=== PATIENT | male | born 1955 | race Caucasian/White ===

== ENCOUNTER 2018-03-10 00:50 | Observation (INO) ==
--- NOTE | 2018-03-10 02:11 | ED ---
HPI General Chief Complaint: Chest Pain Stated Complaint: chest pain Time Seen by Provider: 03/10/18 01:58 Source: patient Mode of arrival: ambulatory Limitations: no limitations History of Present Illness HPI narrative: Patient is a 62-year-old male with history of hypertension, hyperlipidemia, presents to the emergency room with complaints of chest pain. Patient reports that he has been having intermittent chest pains which have been going on for the past 2-3 weeks. Patient reports that chest pains have been more severe over the past 2-3 days. Patient reports that he has tightness in his left chest, reports that he feels short of breath like he cannot breathe with this chest pain. Patient denies any nausea or vomiting with this chest pain. Patient reports that his chest pain feels like indigestion. Patient reports that he did see Dr. Vazquez 10 years ago and had a negative stress test at that time. 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 Complete Quality Measures for STEMI Alert Patients Related Data Home Medications Medication Instructions Recorded Confirmed acyclovir 200 mg PO DAILY PRN 03/10/18 03/10/18 allopurinol 300 mg PO DAILY 03/10/18 03/10/18 azilsartan medoxomil [Edarbi] 40 mg PO DAILY 03/10/18 03/10/18 Allergies Allergy/AdvReac Type Severity Reaction Status Date / Time penicillin G Allergy Unknown Hives Verified 03/10/18 00:55 Review of Systems ROS: all other systems reviewed are negative [facility] Medical History Medical History GERD (gastroesophageal reflux disease) (Acute) Gout (Acute) HTN (hypertension) (Acute) Hypercholesteremia (Acute) Low back pain (Acute) Surgical History Surgical History History of foot surgery (Acute) History of tonsillectomy and adenoidectomy (Acute) Family History Family History Father CHF (congestive heart failure) Social History Social History Substance History: No History of Abuse Second Hand Smoke Exposure: No Smoking Status: Never smoker How Often Do You Have a Drink Containing Alcohol: 2 to 4 times a month Recent Travel in [facility] within the Last 8 Weeks: No Recent Out of Country Travel within the Last 8 Weeks: No Immunization History Tetanus Immunization: <5 Years Hx Influenza Vaccine This Season: Yes Exam Narrative Exam Narrative: GENERAL: mild distress SKIN: Focused skin assessment warm/dry. HEAD: Atraumatic. Normocephalic. EYES: Pupils equal and round. No scleral icterus. No injection or drainage. ENT: No nasal bleeding or discharge. Mucous membranes pink and moist. NECK: Trachea midline. No JVD. CARDIOVASCULAR: Regular rate and rhythm. No murmur appreciated. RESPIRATORY: No accessory muscle use. Clear to auscultation. Breath sounds equal bilaterally. GASTROINTESTINAL: Abdomen soft, non-tender, nondistended. Hepatic and splenic margins not palpable. MUSCULOSKELETAL: No obvious deformities. No clubbing. No cyanosis. No edema. NEUROLOGICAL: Awake and alert. No obvious cranial nerve deficits. Motor grossly within normal limits. Normal speech. PSYCHIATRIC: Appropriate mood and affect; insight and judgment normal. Course Initial Documented Vital Signs Temperature 98.3 F 03/10/18 00:52 Pulse Rate 74 03/10/18 00:52 Respiratory Rate 16 03/10/18 00:52 Blood Pressure 163/95 H 03/10/18 00:52 Pulse Oximetry 97 03/10/18 00:52 Last Documented Vital Signs Temperature 98.6 F 03/10/18 12:39 Pulse Rate 68 03/10/18 12:39 Respiratory Rate 20 03/10/18 12:39 Blood Pressure 133/80 03/10/18 12:39 Pulse Oximetry 98 03/10/18 12:39 Medical Decision Making MDM Narrative Medical decision making narrative: During the course of the patients emergency department visit, the patients history, examination, and differential diagnosis were reviewed with the patient. The patient was placed on a personnel monitor with oximetry and frequent blood pressure monitoring. The patient had an IV access obtained and blood work sent for analysis. The patient was initially provided ASA as well as 1 SL nitro which did seem to help resolve his chest pain labs reviewed, 1st set of CE was negative. Plan to admit to Chest pain unit for 23 hour observation. Patient aggreable to plan of care Medical Screen Exam Complete: Yes Emergency Medical Condition: Yes Differential Diagnosis Differential Diagnosis: ACS, arrhythmia, PE, Aortic Dissection, Anxiety reaction Medical Records Medical records reviewed: Yes I reviewed the patient's medical records. Lab Data Lab results reviewed: Yes I reviewed the patient's lab results. Result diagrams: 03/10/18 02:14 03/10/18 02:14 Lab Results 03/10/18 18 03/10/18 Range/Units 02:14 02:14 02:14 WBC 5.4 (4.0-11.0) th/mm3 RBC 4.45 L (4.50-5.90) mil/mm3 Hgb 14.6 (13.0-17.0) gm/dL Hct 41.7 (39.0-51.0) % MCV 93.7 (80.0-100.0) fL MCH 32.9 (27.0-34.0) pg MCHC 35.1 (32.0-36.0) % RDW 13.7 (11.6-17.2) % Plt Count 165 (150-450) th/mm3 MPV 9.0 (7.0-11.0) fL Neut % (Auto) 51.1 (16.0-70.0) % Lymph % (Auto) 33.4 (9.0-44.0) % [place] % (Auto) 10.7 H (0.0-8.0) % Eos % (Auto) 3.4 (0.0-4.0) % Baso % (Auto) 1.4 (0.0-2.0) % Neut # (Auto) 2.8 (1.8-7.7) th/mm3 Lymph # (Auto) 1.8 (1.0-4.8) th/mm3 [place] # (Auto) 0.6 (0.0-0.9) th/mm3 Eos # (Auto) 0.2 (0.0-0.4) th/mm3 Baso # (Auto) 0.1 (0.0-0.2) th/mm3 WBC Differential . Differential Comment Auto diff final PT 9.7 L (9.8-11.6) sec INR 1.0 Ratio APTT 24.9 (24.3-30.1) sec Sodium 142 (136-145) meq/L Potassium 4.0 (3.5-5.1) meq/L Chloride 106 (98-107) meq/L Carbon Dioxide 26.8 (21.0-32.0) meq/L Anion Gap 9 (5-15) meq/L BUN 18 (7-18) mg/dL Creatinine 1.06 (0.60-1.30) mg/dL Estimated GFR 70 L (>89) mL/min Random Glucose 105 (74-106) mg/dL Calcium 8.3 L (8.5-10.1) mg/dL Total Bilirubin 0.4 (0.2-1.0) mg/dL AST 20 (15-37) U/L ALT 35 (12-78) U/L Alkaline Phosphatase 67 (45-117) U/L Total Creatine Kinase 228 (39-308) U/L CK-MB (CK-2) 5.0 H (0.5-3.6) ng/mL Troponin I Less than 0.02 L (0.02-0.05) ng/mL B-Natriuretic Peptide (0-100) pg/mL Total Protein 7.1 (6.4-8.2) g/dL Albumin 3.8 (3.4-5.0) g/dL 03/10/18 03/10/18 03/10/18 Range/Units 02:14 04:42 08:10 WBC (4.0-11.0) th/mm3 RBC (4.50-5.90) mil/mm3 Hgb (13.0-17.0) gm/dL Hct (39.0-51.0) % MCV (80.0-100.0) fL MCH (27.0-34.0) pg MCHC (32.0-36.0) % RDW (11.6-17.2) % Plt Count (150-450) th/mm3 MPV (7.0-11.0) fL Neut % (Auto) (16.0-70.0) % Lymph % (Auto) (9.0-44.0) % [place] % (Auto) (0.0-8.0) % Eos % (Auto) (0.0-4.0) % Baso % (Auto) (0.0-2.0) % Neut # (Auto) (1.8-7.7) th/mm3 Lymph # (Auto) (1.0-4.8) th/mm3 [place] # (Auto) (0.0-0.9) th/mm3 Eos # (Auto) (0.0-0.4) th/mm3 Baso # (Auto) (0.0-0.2) th/mm3 WBC Differential Differential Comment PT (9.8-11.6) sec INR Ratio APTT (24.3-30.1) sec Sodium (136-145) meq/L Potassium (3.5-5.1) meq/L Chloride (98-107) meq/L Carbon Dioxide (21.0-32.0) meq/L Anion Gap (5-15) meq/L BUN (7-18) mg/dL Creatinine (0.60-1.30) mg/dL Estimated GFR (>89) mL/min Random Glucose (74-106) mg/dL Calcium (8.5-10.1) mg/dL Total Bilirubin (0.2-1.0) mg/dL AST (15-37) U/L ALT (12-78) U/L Alkaline Phosphatase (45-117) U/L Total Creatine Kinase 196 180 (39-308) U/L CK-MB (CK-2) 4.8 H 4.5 H (0.5-3.6) ng/mL Troponin I Less than 0.02 L Less than 0.02 L (0.02-0.05) ng/mL B-Natriuretic Peptide 17 (0-100) pg/mL Total Protein (6.4-8.2) g/dL Albumin (3.4-5.0) g/dL Imaging Data Attestation: I personally reviewed and interpreted this imaging study as follows : Radiologist's impression: Chest X-Ray 03/10/18 02:07 CONCLUSION: Negative examination. Chest CTA 03/10/18 02:11 CONCLUSION: 1. No pulmonary emboli. 2. Suspected right subclavian venous stenosis. Myocardial Perfusion Scan Nuc Med 03/10/18 09:38 CONCLUSION: 1. Unremarkable study. ECG Data EKG Prior to Arrival: No Attestation: I personally reviewed and interpreted this ECG as follows: Interpretation: EKG at 0101: NSR at 72bpm, qt/qtc: 384/408, 1st degree av block Discharge Plan Discharge Disposition Patient Disposition: 01 Discharge Home Discharge Condition Condition: Good Discharge Order Discharge Orders: Discharge Order (Routine); Ordered 03/10/18 Ordered By: Carol Bishop Discharge Details Anticipated Discharge Date: 03/10/18 Physicians Team ED Provider: Edith Najera Primary Care Provider: Melvin Barajas Attending Provider: Maciel Chappell ED Status: Left Department Discharge Information Discharge Date/Time: 03/10/18 17:13
[2018-03-10 02:22] LABS: Baso # (Auto) 0.1 th/mm3 (0.0-0.2); Baso % (Auto) 1.4 % (0.0-2.0); Eos # (Auto) 0.2 th/mm3 (0.0-0.4); Eos % (Auto) 3.4 % (0.0-4.0); Hematocrit 41.7 % (39.0-51.0); Hemoglobin 14.6 gm/dL (13.0-17.0); Lymph # (Auto) 1.8 th/mm3 (1.0-4.8); Lymph % (Auto) 33.4 % (9.0-44.0); Mean Corpuscular HGB Conc 35.1 % (32.0-36.0); Mean Corpuscular Hemoglobin 32.9 pg (27.0-34.0); Mean Corpuscular Volume 93.7 fL (80.0-100.0); Mono # (Auto) 0.6 th/mm3 (0.0-0.9); Mono % (Auto) 10.7 % (0.0-8.0); Neut # (Auto) 2.8 th/mm3 (1.8-7.7); Neut % (Auto) 51.1 % (16.0-70.0); Platelet Count 165 th/mm3 (150-450); Red Blood Count 4.45 mil/mm3 (4.50-5.90); Red Cell Distribution Width 13.7 % (11.6-17.2); White Blood Count 5.4 th/mm3 (4.0-11.0)
[2018-03-10 02:34] LABS: Activated Partial Thrombo Time 24.9 sec (24.3-30.1); Prothrombin Time 9.7 sec (9.8-11.6)
--- NOTE | 2018-03-10 02:41 | XR ---
EXAM DATE: 03/10/2018 2:24 AM EDT AGE/SEX: 62 years / Male INDICATIONS: Chest pain and shortness of breath for a few days. CLINICAL DATA: This is the patient's initial encounter. Patient reports that signs and symptoms have been present for 3 days and indicates a pain score of 0/10. MEDICAL/SURGICAL HISTORY: None. None. COMPARISON: No prior exams available for comparison. FINDINGS: 2 frontal views of the chest demonstrates the lungs to be symmetrically aerated without evidence of m ass, infiltrate or effusion. The cardiomediastinal contours are unremarkable. Osseous structures ar e intact. CONCLUSION: Negative examination. Electronically signed by: Jesus Manuel Ac MD 03/10/2018 2:40 AM EDT
[2018-03-10 02:42] LABS: Alkaline Phosphatase 67 U/L (45-117); Creatine Kinase 228 U/L (39-308); Total Protein 7.1 g/dL (6.4-8.2)
[2018-03-10 02:44] LABS: Alanine Aminotransferase 35 U/L (12-78); Albumin 3.8 g/dL (3.4-5.0); Anion Gap 9 meq/L (5-15); Aspartate Aminotransferase 20 U/L (15-37); Blood Urea Nitrogen 18 mg/dL (7-18); Calcium 8.3 mg/dL (8.5-10.1); Carbon Dioxide 26.8 meq/L (21.0-32.0); Chloride 106 meq/L (98-107); Glomerular Filtration Rate 70 mL/min (>89); Glucose,Random 105 mg/dL (74-106); Sodium 142 meq/L (136-145)
--- NOTE | 2018-03-10 03:34 | CT ---
EXAM DATE: 03/10/2018 3:16 AM EDT AGE/SEX: 62 years / Male INDICATIONS: Chest pain. CLINICAL DATA: This is the patient's initial encounter. Patient reports that signs and symptoms have been present for 1 day and indicates a pain score of 5/10. MEDICAL/SURGICAL HISTORY: Hypertension. None. RADIATION DOSE: 11.58 CTDI (mGy) COMPARISON: [facility], CT CHEST W AND W/O CONTRAST, 03/05/2017. . TECHNIQUE: Volumetric scanning was performed using a multi-row detector CT scanner during bolus infu maria isabel of 100 ml Omnipaque 350 (iohexol) nonionic water-soluble contrast as a single exam dose. The da ta was post processed with a variety of visualization algorithms including full volume maximum intens ity projection and sliding thin slab reformation. Using automated exposure control and adjustment of the mA and/or kV according to patient size, radiation dose was kept as low as reasonably achievable t o obtain optimal diagnostic quality images. DICOM format image data is available electronically for review and comparison. FINDINGS: Pulmonary Arteries: No filling defects are seen in the pulmonary arteries out to the subsegmental ve ssels. The left and right pulmonary arteries are normal in diameter. Lung: No infiltrates seen. Effusion: None. Mediastinum: Suspected stenosis of the right subclavian vein. Collateral veins are seen involving th e mediastinum and shoulder. Heart is normal in size. No pericardial effusion. No evidence of mediasti nal or hilar adenopathy. Other: The axilla is unremarkable. CONCLUSION: 1. No pulmonary emboli. 2. Suspected right subclavian venous stenosis. Electronically signed by: Jesus Manuel Ac MD 03/10/2018 3:32 AM EDT
[2018-03-10 05:26] LABS: Creatine Kinase 196 U/L (39-308)
[2018-03-10 05:38] LABS: Creatine Kinase MB 4.8 ng/mL (0.5-3.6)
[2018-03-10 08:22] VITALS: RESP 20
[2018-03-10 09:12] LABS: Creatine Kinase 180 U/L (39-308)
[2018-03-10 09:24] LABS: Creatine Kinase MB 4.5 ng/mL (0.5-3.6)
[2018-03-10] MEDS ORDERED: Ibuprofen 400 MG Tablet PO ONE (09:59)
[2018-03-10] MEDS ORDERED: LORazepam 1 MG Tablet PO ONE (10:15)
--- NOTE | 2018-03-10 11:09 | P.HPCA ---
History of Present Illness Service: chest pain center Primary Care Physician: Melvin Barajas MD Chief Complaint: Chest Pain History of Present Illness: Patient is a 62 y.o. male who presented to the ER earlier this morning for c/o Left anterior upper chest pain described as a tightness. Onset ~ 20 days ago with increased frequency. Nonexertional, accompanied by dyspnea and the " feeling of needing to take deeper breaths". No N/V. Last evening for the first time he has associated diaphoresis prompting him to the ER as opposed to contacting his PCP for referral to cardiology as planned. Radiation to mid scapular area. Duration uncertain, but believes several minutes. AT times when he eats and develops the pain after, he will feel a full sensation like gas". Often relieved with 400 mg of Ibuprofen and a muscle relaxer he has for PRN use for LBP. Did return from [facility] to [place], [place] yesterday but did not have increased episodes in the higher elevations there. Feels very anxious/stressed when he gets the episodes to the degree he feels like he will go to sleep at night and not wake up. He denies any PND, Orthopnea, leg edema or palpitations. Denies history of Coronary Artery Disease. Did have similar episode of chest pain approximately 10 years ago with a consult to Dr. Vazquez. States he had a ETT that was abnormal resulting in a Cardiac Catheterization that demonstrated normal arteries. He was put on 1/2 tablet of a generic SSRI ( unsure which) for "stress" and he stopped it ~ 6 months ago. Unsure if that relates to return of his chest pain. He has not seen Dr. Vazquez in ~8 years. He is active and generally other than the above and some chronic intermittent LBP (L4-L5) has been well. - Diagnosis (1) Chest pain of unknown etiology Review of Systems All other systems reviewed negative except as stated in HPI [facility] - History History Provided By: Patient - Medical History Medical History: Medical History (Last Updated 03/10/18 @ 10:28 by JESSICA Samuels) GERD (gastroesophageal reflux disease) Gout HTN (hypertension) Hypercholesteremia Low back pain - Surgical History Surgical History: Surgical History (Last Reviewed 03/10/18 @ 02:55 by Edith Najera) History of foot surgery History of tonsillectomy and adenoidectomy - Family History Family History: Family History (Last Updated 03/10/18 @ 10:30 by JESSICA Samuels) Father CHF (congestive heart failure) - Tobacco History Second Hand Smoke Exposure: No Tobacco Use In Past 30 Days: No Smoking Status: Never smoker - Alcohol History How Often Do You Have a Drink Containing Alcohol: 2 to 4 times a month - Travel History Recent Travel in the [place] Within the Last 8 Weeks: No Recent Travel Out of the Country Within the Last 8 Weeks: No - Immunization History Tetanus Immunization: <5 Years Hx Influenza Vaccine This Season: Yes Medications and Allergies Active Medications: Active Medications Ibuprofen (Motrin) 400 mg PO ONCE ONE Stop: 03/10/18 10:00 Sodium Chloride (Ns Flush) 2 ml IV.FLUSH UNSCH PRN PRN Reason: FLUSH AFTER USING IV ACCESS Allergies Allergy/AdvReac Type Severity Reaction Status Date / Time penicillin G Allergy Unknown Hives Verified 03/10/18 00:55 Home Medications Medication Instructions Recorded Confirmed Type acyclovir 200 mg PO DAILY PRN 03/10/18 03/10/18 History allopurinol 300 mg PO DAILY 03/10/18 03/10/18 History azilsartan medoxomil [Edarbi] 40 mg PO DAILY 03/10/18 03/10/18 History Exam Vital signs: Vital Signs 03/10/18 00:52 03/10/18 01:53 03/10/18 02:22 Temperature 98.3 F Pulse Rate 74 66 Respiratory Rate 16 20 Blood Pressure 163/95 H 135/77 Pulse Oximetry 97 97 95 03/10/18 02:48 03/10/18 04:55 03/10/18 08:20 Temperature 98.2 F Pulse Rate 64 67 70 Respiratory Rate 18 18 20 Blood Pressure 124/58 L 151/87 H 122/74 Pulse Oximetry 96 97 95 Intake & Output 03/09/18 03/10/18 03/10/18 18:59 06:59 18:59 Weight 117.934 kg Narrative: GENERAL: Very pleasant 62 y.o. male asleep on rounds. Arouses easily and in no acute distress. SKIN: Warm and dry. HEAD: Atraumatic. Normocephalic. EYES: Pupils equal and round. No scleral icterus. No injection or drainage. ENT: No nasal bleeding or discharge. Mucous membranes pink and moist. NECK: Trachea midline. No JVD. No Carotid Bruits CARDIOVASCULAR: S1 and S2 in regular rate and rhythm. No S3, S4. No rubs, gallops, or murmurs. RESPIRATORY: No accessory muscle use. Clear to auscultation. Breath sounds equal bilaterally. GASTROINTESTINAL: Abdomen soft, non-tender, nondistended. Hepatic and splenic margins not palpable. MUSCULOSKELETAL: Extremities without clubbing, cyanosis, or edema. No obvious deformities. No leg edema. DP and PT pulses 2+ bilaterally. Mild tenderness on palpation left anterolateral chest wall and slight in mid thoracic/scapular area. No skin rashes along these areas NEUROLOGICAL: Awake and alert. No obvious cranial nerve deficits. Motor grossly intact, moves all extremities well. Normal speech. PSYCHIATRIC: Appropriate mood and affect; insight and judgment normal. Results 03/10/18 02:14 03/10/18 02:14 Cardiac Enzymes 03/10/18 03/10/18 03/10/18 Range/Units 02:14 02:14 04:42 AST 20 (15-37) U/L CK-MB (CK-2) 5.0 H 4.8 H (0.5-3.6) ng/mL Troponin I Less than 0.02 L Less than 0.02 L (0.02-0.05) ng/mL B-Natriuretic Peptide 17 (0-100) pg/mL 03/10/18 Range/Units 08:10 AST (15-37) U/L CK-MB (CK-2) 4.5 H (0.5-3.6) ng/mL Troponin I Less than 0.02 L (0.02-0.05) ng/mL B-Natriuretic Peptide (0-100) pg/mL Coagulation 18 03/10/18 Range/Units 02:14 02:14 PT 9.7 L (9.8-11.6) sec APTT 24.9 (24.3-30.1) sec B-Natriuretic Peptide 17 (0-100) pg/mL CBC 03/10/18 Range/Units 02:14 WBC 5.4 (4.0-11.0) th/mm3 RBC 4.45 L (4.50-5.90) mil/mm3 Hgb 14.6 (13.0-17.0) gm/dL Hct 41.7 (39.0-51.0) % Plt Count 165 (150-450) th/mm3 Neut # (Auto) 2.8 (1.8-7.7) th/mm3 Lymph # (Auto) 1.8 (1.0-4.8) th/mm3 [place] # (Auto) 0.6 (0.0-0.9) th/mm3 Eos # (Auto) 0.2 (0.0-0.4) th/mm3 Baso # (Auto) 0.1 (0.0-0.2) th/mm3 Comprehensive Metabolic Panel 03/10/18 Range/Units 02:14 Sodium 142 (136-145) meq/L Potassium 4.0 (3.5-5.1) meq/L Chloride 106 (98-107) meq/L Carbon Dioxide 26.8 (21.0-32.0) meq/L BUN 18 (7-18) mg/dL Creatinine 1.06 (0.60-1.30) mg/dL Calcium 8.3 L (8.5-10.1) mg/dL AST 20 (15-37) U/L ALT 35 (12-78) U/L Alkaline Phosphatase 67 (45-117) U/L Total Protein 7.1 (6.4-8.2) g/dL Albumin 3.8 (3.4-5.0) g/dL Intake and Output 03/09/18 03/10/18 03/10/18 22:59 06:59 14:59 Other: Weight 117.934 kg Impressions Chest X-Ray 03/10/18 02:07 CONCLUSION: Negative examination. Chest CTA 03/10/18 02:11 CONCLUSION: 1. No pulmonary emboli. 2. Suspected right subclavian venous stenosis. - Imaging and Cardiology EKG results: other (SR, low QRS voltage precordial leads, 1st degree AV block) Caprini VTE Risk Assessment Caprini Risk Assessment Model: Point Value = 1 Point Value = 2 Point Value = 3 Point Value = 5 Age 41-60 Minor surgery BMI > 25 kg/m2 Swollen legs Varicose veins or History of unexplained or recurrent spontaneous Oral contraceptives or hormone replacement Sepsis (< 1 month) Serious lung disease, including pneumonia (< 1 month) Abnormal pulmonary function Acute myocardial infarction Congestive heart failure (< 1 month) History of inflammatory bowel disease Medical patient at bed rest Age 61-74 Arthroscopic surgery Major open surgery (> 45 min) Laparoscopic surgery (> 45 min) Malignancy Confined to bed (> 72 hours) Immobilizing plaster cast Central venous access Age >= 75 History of VTE Family history of VTE Factor V Leiden Prothrombin [id number] Lupus anticoagulant Anticardiolipin antibodies Elevated serum homocysteine Heparin-induced thrombocytopenia Other congenital or acquired thrombophilia Stroke (< 1 month) Elective arthroplasty Hip, pelvis, or leg fracture Acute spinal cord injury (< 1 month) Prophylaxis Regimen: Total Risk Factor Score Risk Level Prophylaxis Regimen 0-1 Low Early ambulation 2 Moderate Order ONE of the following: *Sequential Compression Device (SCD) *Heparin 5000 units SQ BID 3-4 Higher Order ONE of the following medications: *Heparin 5000 units SQ TID *Enoxaparin/Lovenox 40 mg SQ daily (WT < 150 kg, CrCl > 30 mL/min) *Enoxaparin/Lovenox 30 mg SQ daily (WT < 150 kg, CrCl > 10-29 mL/min) *Enoxaparin/Lovenox 30 mg SQ BID (WT < 150 kg, CrCl > 30 mL/min) AND/OR *Sequential Compression Device (SCD) 5 or more Highest Order ONE of the following medications: *Heparin 5000 units SQ TID (Preferred with Epidurals) *Enoxaparin/Lovenox 40 mg SQ daily (WT < 150 kg, CrCl > 30 mL/min) *Enoxaparin/Lovenox 30 mg SQ daily (WT < 150 kg, CrCl > 10-29 mL/min) *Enoxaparin/Lovenox 30 mg SQ BID (WT < 150 kg, CrCl > 30 mL/min) AND *Sequential Compression Device (SCD) Assessment and Plan - Assessment (1) Chest pain of unknown etiology Code(s): R07.89 - Other chest pain Status: Acute - Plan 1. Chest pain: patient has been r/o for ACS with 3 negative sets of cardiac enzymes and ekgs: Remaining labs unremarkable. CXR negative. CTA chest negative for PE. Suspected Right Subclavian venous stenosis. Plan discussed with Dr. Chappell who is seeing the patient this morning. Given he has had a false positive ETT in the past leading to Cardiac Cath which was normal ~ 10 years ago , will proceed with ETT SPECT for further evaluation. 2. HTN: resume hypertensive medication. Code Status: Full Code Discussed Condition With: Dr. Maciel Chappell
[2018-03-10 12:41] VITALS: BP 133/80; PULSE 68; TEMP 98.6; O2SAT 98
--- NOTE | 2018-03-10 15:02 | TR ---
Date Performed: 03/10/2018 Time Performed: 12:59:57 DOCTOR: Maciel Chappell DRUG LIST: CLINICAL HISTORY: REASON FOR TEST: Chest pain REASON FOR ENDING: PATIENT EXERCISED USING CESARIO PROTOCOL FOR Total Exercise Time=9:25, Maximum JJ=557 % MAX HR Jtyjbccl=872.0% Resting MW=518/84 Maximum WS=146/90 METs Achieved=10.1 NO CHEST PAIN AT EXERTION, MOD DYSPNEA. TEST ENDED SECONDARY TO WELL EXCEEDING GOAL, LEG FATIGUE. NS INF/LAT [facility] ANGES, NUCLEAR IMAGING PENDING. 3 BEAT RUN, OCCASIONAL PVC, RARE PAC OBSERVATION: CONCLUSION: COMMENTS: Conclusion: Normal treadmill exercise. No evidence of ischemia. Radionuclide was inje cted one minute prior to ending test. Nuclear imaging and interpretation are pending.
--- NOTE | 2018-03-10 15:05 | ECG ---
Date Performed: 03/10/2018 Time Performed: 01:01:54 PTAGE: 62 years EKG: Sinus rhythm WITH SINUS ARRHYTHMIA WITH FIRST DEGREE AV BLOCK LOW QRS VOLTAGE IN EXTREMITY LEADS POSSIBLE INFERIO R MYOCARDIAL INFARCTION ABNORMAL ECG NO PREVIOUS TRACING DOCTOR: Maciel Chappell Interpretating Date/Time 03/10/2018 15:03:35
--- NOTE | 2018-03-10 15:17 | ECG ---
Date Performed: 03/10/2018 Time Performed: 04:30:47 PTAGE: 62 years EKG: Sinus rhythm WITH FIRST DEGREE AV BLOCK ABNORMAL ECG Since PREVIOUS TRACING , no significant change noted DOCTOR: Maciel Chappell Interpretating Date/Time 03/10/2018 15:16:04
--- NOTE | 2018-03-10 15:23 | NM ---
EXAM DATE: 03/10/2018 3:11 PM EDT AGE/SEX: 62 years / Male INDICATIONS: Angina. Chest pain on Digoxin left chest pain with dyspnea. CLINICAL DATA: This is the patient's initial encounter. Patient reports that signs and symptoms have been present for 2 weeks and indicates a pain score of 8/10. MEDICAL/SURGICAL HISTORY: Gastroesophageal reflux disease. Hypercholesterolemia. Hypertension . Tonsillectomy. COMPARISON: No prior exams available for comparison. DOSE: 11 mCi Tc 99m Myoview at rest 35 mCi [id number] at stress REST HEART RATE: 77 BPM TARGET HEART RATE: 133 BPM MAX HEART RATE: 146 BPM REST BLOOD PRESSURE: 136/84 mmHg MAX BLOOD PRESSURE: 210/90 mmHg EJECTION FRACTION: > 70 % TECHNIQUE: The patient underwent upright treadmill exercise in the chest pain center. Continuous EC G tracing was monitored during stress. Gated SPECT imaging was performed after stress, and conventio nal SPECT imaging was performed at rest. The examination was performed on a SPECT/CT scanner, both a ttenuation-corrected and non-corrected datasets were reviewed. FINDINGS: Distribution: The maximum perfused segment at stress is in the anterolateral wall. Perfusion: The pattern of perfusion at stress is within normal limits. Gated Study: There are intact wall motion and wall thickening without hypokinetic or dyskinetic segme nts. The ejection fraction is calculated at > 70%. RISK CATEGORY: CONCLUSION: 1. Unremarkable study. Electronically signed by: Claritza Cantrell MD 03/10/2018 3:22 PM EDT
== END 2018-03-10 17:15 | disposition home or self-care (01) ==
LOC: NEPC 00:50 → NEDA 00:50 → NEPGCP 07:20